=== PATIENT | male | born 1960 | race African-American/Black ===

== ENCOUNTER 2018-11-25 15:51 | Emergency (ER) | payer MEDICAID ==
[~2018-11-25] VITALS: Ht 175.3 cm; Wt 89.0 kg
[2018-11-25] MEDS ORDERED: KETOROLAC 30MG/ML VIAL IM ONE (21:45)
[2018-11-25 22:15] VITALS: BP 125/96
== END 2018-11-25 22:20 | disposition home or self-care (01) ==
LOC: ER 15:51
DX: J40 Bronchitis, not specified as acute or chronic (principal); B34.9 Viral infection, unspecified; F17.210 Nicotine dependence, cigarettes, uncomplicated
CPT/HCPCS: 71045; 87070; 87430; 87804; 93005; 96372; 99284; J1885